=== PATIENT | male | born 1960 | race Caucasian/White ===

== ENCOUNTER 2020-05-07 15:12 | Outpatient (CLI) | payer OTHER, SELFPAY ==
--- NOTE | 2020-05-07 15:36 | CT_ITS ---
WS: [id number] CT scan of the abdomen and pelvis without Oral and IV contrast. Additional two-dimensional coronal an d sagittal reconstruction was performed. 05/07/2020 Clinical Data: GROSS HEMATURIA Comparison: None. DLP: 1155.[address] scans at [facility] use at least one of these dose optimization techniques: automat ed exposure control; mA and/or kV adjustment per patient size (includes targeted exams where dose is matched to clinical indication); or iterative reconstruction. Findings: The lower lungs show no nodules, masses or effusions. There is minimal central atelectasis in the rig ht middle and right lower lobes. The liver, gallbladder, spleen, adrenal glands and pancreas are norm al. There is a nonobstructing left renal pelvic 1.0 cm calculus. No hydronephrosis, cysts or masses are s een in either kidney. The right kidney shows no calculi. The ureters are not dilated and there are no ureteral calculi. No calculi are in the bladder. The abdominal aorta is normal in size with calcification in the wall. No appendicitis or diverticulitis is seen. Stomach, small bowel and colon are not remarkable. The beverly dder is unremarkable. No inguinal hernia is seen. The prostate is enlarged. There is mild osteoarthritic spurring of the lumbar vertebral bodies.. CT/CT kidney stone [id number] Impression: 1. Nonobstructing 1.0 cm left renal pelvic calculus. 2. No acute intra-abdominal or pelvic abnormalities are seen.
== END 2020-05-07 15:13 | disposition home or self-care (01) ==
LOC: RADWPI 15:19
PROVIDERS: PCP Nurse Practitioner Family; Visit Provider Nurse Practitioner Family
DX: R31.0 Gross hematuria (principal); N20.0 Calculus of kidney
CPT/HCPCS: 74176

== ENCOUNTER 2020-05-18 10:46 | Outpatient (CLI) | payer OTHER, SELFPAY ==
--- NOTE | 2020-05-18 10:45 | XR_ITS ---
WS: [id number] Exam: XR KUB [id number] Date/Time of Exam: 05/18/2020 10:45 AM Reason For Exam: RENAL STONE There is a 1 cm calcification superimposing the left kidney that apparently represents the patient's known left renal stone. No other calcifications are noted in the abdomen or pelvis. Visualized organ margins are intact. No bowel obstruction or pneumoperitoneum. Regional bony elements are intact. XR/XR KUB [id number] IMPRESSION: 1. 1 cm left abdominal calcification most likely representing the patient's kno wn renal stone. 2. No acute abdominal process.
== END 2020-05-18 10:47 | disposition home or self-care (01) ==
LOC: RAD 10:49
PROVIDERS: PCP Nurse Practitioner Family; Visit Provider Urology
DX: N20.0 Calculus of kidney (principal)
CPT/HCPCS: 74018; 81003

== ENCOUNTER → 2020-05-23 16:31 | Outpatient (BNVA) | payer OTHER, SELFPAY | PROVIDERS: PCP Nurse Practitioner Family; Visit Provider Urology | DX: Z11.59 Encounter for screening for other viral diseases (principal); N20.0 Calculus of kidney | CPT/HCPCS: 87635 ==

== ENCOUNTER 2020-05-28 11:09 | Day surgery (SDC) | payer OTHER, SELFPAY ==
--- NOTE | 2020-05-28 11:22 | XRR_ITS ---
PROCEDURE INFORMATION: Exam: XR Abdomen, 1 View Exam date and time: 05/28/2020 11:23 AM Age: 59 years old Clinical indication: Screening exam; Other: Preop left eswl TECHNIQUE: Imaging protocol: XR of the abdomen. Views: Frontal supine view of the abdomen. 1 View. COMPARISON: CR XR KUB [id number] 05/18/2020 11:02 AM FINDINGS: Gastrointestinal tract: Normal. No bowel dilation. Organs: A 1 cm calculus projects on the left renal pelvis. This has been seen on previous CT and plain radiographs. Its position is unchanged. No other calcifications are seen in the projections of the kidneys or ureters. Bones/joints: Unremarkable. XR/XR KUB [id number] IMPRESSION: Stable appearance of the 1 cm calculus projecting on the left renal pelvis.
[2020-05-28 11:46] VITALS: BP 117/76; PULSE 56; RESP 18; TEMP 37; O2SAT 98
[2020-05-28] MEDS: sodium chloride 0.9% 1,000 ML 30 ML IV (11:55)
--- NOTE | 2020-05-28 12:04 | PC.NURSE ---
1200-Notified anesthesia, Dr Bolden of pts irreg heartbeat. Had a few PVC, and a few PAC on heart monitor. Dr Bolden said it was ok, and no further orders given.
--- NOTE | 2020-05-28 12:12 | ANES.PREANE2 ---
Pre-Anesthetic Assessment Pre-Anesthetic Assessment: Height/Weight: Height 1.68 m Weight 63.503 kg Temp Pulse Resp BP Pulse Ox 98.6 F 56 L 18 117/76 98 05/28/20 11:46 05/28/20 11:46 05/28/20 11:46 05/28/20 11:46 05/28/20 11:46 Preop Diagnosis: Symptomatic left renal pelvic stone Proposed Procedure: Operation Date: 05/28/20 12:40 Proposed Procedures p Cystoscopy 42660 80826 N20.0 R31.0(Not Applicable) - Jorge Siddiqui MD s Ureteral Stent Placement(Left) - Jorge Siddiqui MD s ESWL(Not Applicable) - Jorge Siddiqui MD Was Beta Kathy taken within 24 hours: N/A Last intake: Intake Last Liquid Date 05/27/20 Last Liquid Time 17:00 Last Solid Date 05/27/20 Last Solid Time 11:00 Social: Social History: Tobacco Exam: Pre-Anes Outpt Exam: alert, oriented x 3, clear to auscultation bilaterally (BBS decreased, rhonchi) and regular rate & rhythm Airway: Submandibular: WNL Cervical ROM: WNL MP: 2 Additional comments: upper denture Pulmonary: Pulmonary: COPD CV/HEM: CV/HEM: HTN : : None reported Hepatic: Hepatic: None reported GI: Comments: Kidney stones Metabolic: Metabolic: None reported Musc/skel: Musc/skel: None reported Neuropsych: Neuropsych: None reported Anesthetic Plan: ASA status: 3 Anesthesia: General Risk of > 500 ml blood loss (7ml/kg in children): No Meds/Allergies Current Medications: Current Medications Generic Name Dose Route Start Last Admin Trade Name Freq PRN Reason Stop Dose Admin Sodium Chloride 1,000 mls @ 30 ml s/hr 05/28/20 08:30 05/28/20 11:55 Sodium Chloride 0.9% IV 05/29/20 08:29 30 mls/hr .Q24H PHAN Administration PFSH Anesthesia PFSH: Medical History (Updated 05/18/20 @ 12:10 by Jorge Siddiqui MD) Benign prostatic hyperplasia with lower urinary tract symptoms Erectile dysfunction Gross hematuria HTN (hypertension) Hyperlipemia Renal calculus Social History (Updated 05/18/20 @ 11:36 by Zulema Roshan, CT) Smoking and tobacco status: current every day smoker Alcohol intake: current Alcohol intake frequency: holidays/special occasions only Marital status: Current occupational status: employed Data Anesthesia Cardiac Studies: No Data to Display
--- NOTE | 2020-05-28 12:57 | W.PM.OPSUD ---
Surgery/Procedure H&P Update DATE OF PROCEDURE: May 28, 2020 DATE H&P PERFORMED: 05/18/20 H&P UPDATE INFORMATION: I have reviewed H&P completed within last 30 days, I have examined patient prior to procedure, No changes to prior documentation and H&P is in [facility] EMR on date indicated PREOP DIAGNOSIS: Symptomatic left renal pelvic stone PLANNED PROCEDURE: Operation Date: 05/28/20 12:40 Proposed Procedures p Cystoscopy 71039 45133 N20.0 R31.0(Not Applicable) - Jorge Siddiqui MD s Ureteral Stent Placement(Left) - Jorge Siddiqui MD s ESWL(Not Applicable) - Jorge Siddiqui MD
--- NOTE | 2020-05-28 12:58 | P.OP_ITS ---
Operative Report Date of procedure: May 28, 2020 Pre-op Diagnosis: Symptomatic left renal pelvic/UPJ stone Post-op diagnosis: same Procedure Done: 1. Cystoscopy with LEFT ureteral stent placement 2. Extracorporeal shockwave lithotripsy to left UPJ stone Implants: 7 x 26 cm double-pigtail stent Pathology: none sent Surgeon: [employer] Worker: David Trent: Lithotripsy trace evidence technician Anesthesia: General Estimated blood loss: None Urine output: Not measured Complications: None Findings: 1. Stone easily localized with biplanar fluoroscopy. 2. 2500 shocks administered to the stone with excellent change. Condition: stable Disposition: PACU Brief History: Gerard is a very pleasant 59-year-old white male first evaluated on 05/18/2020 at the request of Caprice Rodriges for history of stones, gross hematuria, and intermittent left flank pain. Work-up included a CT scan that demonstrated a 1 cm left UPJ stone. Options included continued observation versus treatment (endoscopic versus ESWL). After detailed discussion the patient elected to proceed with stent and ESWL. Procedure: After routine preoperative evaluation examination and obtaining of informed consent he was taken to the operating suite on 05/28/2020 where general anesthesia was administered without difficulty after appropriate timeout was performed, SCDs confirmed to be functioning, preoperative antibiotics administered, beta-elza protocol confirmed. Prepped and draped in usual sterile fashion in dorsolithotomy position paying careful attention to avoiding pressure points. 21 [place] cystoscope with 30 degree lens was introduced into the urethral meatus but the fossa navicularis was tight and therefore dilated with Bixby sounds from 18-24. It was then advanced into the bladder under videoscopy. Bladder was systematically examined and showed no obvious mucosal abnormalities but did demonstrate trabeculation and some cellule formation. (On TAMSULOSIN) Flexible tip guidewire was then advanced up the left ureter bypassing the stone and curling in the upper pole calyx. A 7 [place] by 26 cm double-pigtail stent was advanced over the guidewire through the cystoscope into appropriate position as confirmed via fluoroscopy and cystoscopy. The bladder was drained and the cystoscopic portion of the procedure was completed. He was then placed in supine position on the Dornier unit such that the stone was located at the focal point utilizing biplanar fluoroscopy. Shock head was positioned posteriorly. Shockwave was initiated and intensity of 1 and advanced to an intensity of 4 after about a 3-minute pause following roughly 300 shocks. Rate was initiated at 70 and after notable change was identified increased to 90. A total of 2500 shocks were administered to the stone and stone fragments with excellent change. He tolerated the procedure well without complications and was awakened in the operating room and returned to the recovery room in stable condition. PLANS: 1. Expect discharge from outpatient surgery this afternoon. 2. Follow-up in roughly 1 week with KUB possible cystoscopy stent removal.
[2020-05-28] MEDS: levofloxacin-dextrose 5 % 500 MG/100 ML PREMIX 100 MG IV (13:06)
--- NOTE | 2020-05-28 13:15 | W.PM.OPSUD ---
Surgery/Procedure H&P Update DATE OF PROCEDURE: May 28, 2020 DATE H&P PERFORMED: 05/18/20 H&P UPDATE INFORMATION: I have reviewed H&P completed within last 30 days, I have examined patient prior to procedure, No changes to prior documentation and H&P is in [facility] EMR on date indicated PREOP DIAGNOSIS: Symptomatic left renal pelvic/UPJ stone PLANNED PROCEDURE: Operation Date: 05/28/20 12:40 Proposed Procedures p Cystoscopy 80715 24060 N20.0 R31.0(Not Applicable) - Jorge Siddiqui MD s Ureteral Stent Placement(Left) - Jorge Siddiqui MD s ESWL(Not Applicable) - Jorge Siddiqui MD
[2020-05-28 14:15] VITALS: BP 134/84; PULSE 77; RESP 12; TEMP 36.1; O2SAT 100
[2020-05-28 14:20] VITALS: BP 122/68; PULSE 66; RESP 16; O2SAT 98
[2020-05-28 14:25] VITALS: BP 125/71; PULSE 57; RESP 16; TEMP 36.1; O2SAT 95
[2020-05-28 14:30] VITALS: BP 107/65; PULSE 61; RESP 14; TEMP 36.6; O2SAT 100
[2020-05-28 15:00] VITALS: BP 129/77; PULSE 58; RESP 16; O2SAT 100
--- NOTE | 2020-05-28 15:28 | PC.NURSE ---
PATIENT STARTED TO GET DRESSED TO GO HOME WITH ASSIST FROM A FRIEND. FRIEND APPROACHED NURSE REPORTING PATIENT WAS BLEEDING. MODERATE AMOUNT OF BLOOD NOTED DOWN BILATERAL INNER THIGHS. MEDIUM SIZE BLOOD CLOT NOTED. DENIES PAIN BP 128/72 HR 74. ASSISTED PATIENT TO BATHROOM TO TRY AND URINATE. PATIENT REPORTS 2 DROPS OF BLOOD CAME FROM PENIS, BUT WAS UNABLE TO URINATE. DR. HANCOCK NOTIFIED. TO ASSESS PATIENT WHEN OUT OF CURRENT SURGERY
--- NOTE | 2020-05-28 16:20 | PC.NURSE ---
BLADDER SCAN COMPLETE. AN AVERAGE OF 150ML NOTED. RELAYED TO
--- NOTE | 2020-05-28 17:08 | PM.PACU ---
PACU note PACU note: VSS Post-Anesthesia Exam: awake Disposition: discharged
--- NOTE | 2020-05-28 18:10 | SUR.PHASEII ---
approx 530ml urine in bladder per bladder scanner
--- NOTE | 2020-05-28 18:22 | SUR.PHASEII ---
patient has been to bathroom several times and still cannot void. Left voicemail with Dr. Siddiqui.
== END 2020-05-28 19:03 | disposition home or self-care (01) ==
PROVIDERS: PCP Nurse Practitioner Family; Visit Provider Urology
PROC: 0TJB8ZZ Inspection of Bladder, Via Natural or Artificial Opening Endoscopic (ICD-10-PCS; CPT 52000; principal; 2020-05-28 12:40)
PROC: (CPT 50605; 2020-05-28 12:40)
PROC: (CPT 50590; 2020-05-28 12:40)
DX: N20.0 Calculus of kidney (principal); I10 Essential (primary) hypertension; J44.9 Chronic obstructive pulmonary disease, unspecified; N40.0 Benign prostatic hyperplasia without lower urinary tract symptoms; E78.5 Hyperlipidemia, unspecified; F17.210 Nicotine dependence, cigarettes, uncomplicated
CPT/HCPCS: 50590; 52332; 12345; 51702; 74018; C2625; J1100; J1956; J2405; J2704; J2710; J3010; J3490; J7030

== ENCOUNTER 2020-06-07 09:29 | Outpatient (CLI) | payer OTHER, SELFPAY ==
--- NOTE | 2020-06-07 09:30 | XRR_ITS ---
PROCEDURE INFORMATION: Exam: XR Abdomen, 1 View Exam date and time: 06/07/2020 9:42 AM Age: 59 years old Clinical indication: Condition or disease; Kidney or ureter condition; Calculus (stone) in kidney; Patient HX: Follow up left side stone; Additional info: Renal stone TECHNIQUE: Imaging protocol: XR of the abdomen. Views: Frontal supine view of the abdomen. 1 View. COMPARISON: CR XR KUB [id number] 05/28/2020 11:34 AM FINDINGS: Gastrointestinal tract: The bowel gas pattern is nonspecific. No bowel dilation. Bones/joints: Unremarkable. There is a double-J ureteral stent in place on the left side in good position. A small caliceal stones are seen in the lower pole collecting system of the left kidney measuring 5 mm and 9 mm respectively. On prior examination a large a caliceal stone was present measuring 10 mm XR/XR KUB [id number] IMPRESSION: 1. Small renal stones the lower pole collecting system left kidney new since prior 2. Double-J ureteral stent is in place on the left side in good position. 3. Negative for acute GI abnormality
== END 2020-06-07 09:30 | disposition home or self-care (01) ==
PROVIDERS: PCP Nurse Practitioner Family; Visit Provider Urology
DX: N20.0 Calculus of kidney (principal); Z96.0 Presence of urogenital implants
CPT/HCPCS: 74018; 81003

== ENCOUNTER 2020-09-03 08:57 | Outpatient (CLI) | payer OTHER, SELFPAY ==
--- NOTE | 2020-09-03 09:30 | XRR_ITS ---
PROCEDURE INFORMATION: Exam: XR Abdomen Exam date and time: 09/03/2020 9:08 AM Age: 59 years old Clinical indication: Condition or disease; Kidney or ureter condition; Calculus (stone) in kidney; Additional info: Renal stone TECHNIQUE: Imaging protocol: XR of the abdomen. Views: Frontal supine view of the abdomen. 1 View. COMPARISON: CR XR KUB [id number] 06/07/2020 9:46 AM FINDINGS: Gastrointestinal tract: Normal. No bowel dilation. Organs: No calcifications are seen in the projection of the kidneys, ureters or urinary bladder. Bones/joints: Unremarkable. XR/XR KUB [id number] IMPRESSION: No significant abnormality.
== END 2020-09-03 08:58 | disposition home or self-care (01) ==
LOC: RAD 09:03
PROVIDERS: PCP Nurse Practitioner Family; Visit Provider Urology
DX: N20.0 Calculus of kidney (principal)
CPT/HCPCS: 74018; 81003

== ENCOUNTER 2022-04-14 15:39 | Emergency (ER) | payer SELFPAY ==
[2022-04-14 15:47] VITALS: BP 114/72; PULSE 69; RESP 18; TEMP 36.4; O2SAT 100; BMI 23.3
--- NOTE | 2022-04-14 15:53 | XRR_ITS ---
PROCEDURE INFORMATION: Exam: XR Left Hand Exam date and time: 04/14/2022 4:04 PM Age: 61 years old Clinical indication: Injury or trauma; Other: Laceration; Hand; Left; Additional info: Left hand laceration injury TECHNIQUE: Imaging protocol: Radiologic exam of the Left hand. Views: 3 or more views. COMPARISON: No relevant prior studies available. FINDINGS: Bones/joints: No acute fracture dislocation. Soft tissues: A discrete high-density focus measuring 4 mm is noted projecting over the thenar region on the 2nd image but not on other images. If there is strong clinical concern for soft tissue foreign body, follow-up assessment may be helpful. Soft tissue air is noted near the proximal thumb and thenar region. Other findings: Three views submitted. Lateral views somewhat limited due to overlapping structures. XR/XR hand LT min 3V* [id number] IMPRESSION: Soft tissue findings as above. No acute fracture.
--- NOTE | 2022-04-14 16:06 | W.ED.WOUNDLC ---
HPI - Wound/Laceration General: Chief Complaint: Wound/Laceration Stated Complaint: Left hand lac Time Seen by Provider: 04/14/22 15:53 History of Present Illness: Patient is a 61-year-old male comes to the ED with left hand laceration. Injury occurred just prior to arrival. Patient says he was splitting some wood and cut the webspace between his thumb and index finger. He has full range of motion in thumb. He is not up-to-date on his tetanus. Associated symptoms: Denies chills, fever(s), nausea or vomiting Review of Systems Const: Denies: fever(s), chills or fatigue Eyes: Denies: change in vision or eye discomfort ENMT: Denies: throat pain, odynophagia, nasal discharge or nasal congestion Card: Denies: chest pain, palpitations, edema, swelling of feet/ankles, dyspnea on exertion or orthopnea Resp: Denies: dyspnea, productive cough or non-productive cough GI: Denies: abdominal pain, nausea, vomiting, diarrhea, constipation or hematochezia : Denies: flank pain, difficulty urinating, dysuria or hematuria Musc: Denies: neck pain, back pain or extremity swelling Skin/Breast: Reports: new lesions (left hand laceration); Denies: rash Neuro: Denies: headache(s), numbness in extremities or weakness in extremities PFSH ED PFSH: Medical History (Updated 04/14/22 @ 17:24 by KRISTIN Hernandez) Benign prostatic hyperplasia with lower urinary tract symptoms Erectile dysfunction Gross hematuria HTN (hypertension) Hyperlipemia Renal calculus Urolithiasis Surgical History (Updated 09/01/21 @ 14:26 by Jorge Siddiqui MD) Status post extracorporeal shock wave therapy Social History Smoking and tobacco status: current every day smoker Alcohol intake: current Alcohol intake frequency: holidays/special occasions only Marital status: Current occupational status: employed Physical Exam Const: COMMON NORMALS: patient oriented x3 and alert GENERAL APPEARANCE: cooperative HENMT: COMMON NORMALS: normocephalic HEAD & SCALP: normocephalic MOUTH: Normal oral and palatal mucosa present THROAT: posterior oropharynx normal and uvula midline Neck/C-Spine: COMMON NORMALS: supple GENERAL: Yes normal visual inspection Resp: COMMON NORMALS: normal respiratory effort, No retractions, No use of accessory muscles and clear to auscultation bilaterally AUSCULTATION: clear to auscultation bilaterally Cardio: COMMON NORMALS: regular rate, regular rhythm, S1 normal heart sound present, S2 normal heart sound present, No gallops present (Cardio), No clicks present (Cardio), No murmurs present (Cardio) and Peripheral pulses 2+ throughout RATE: regular rate RHYTHM: regular rhythm HEART SOUNDS: S1 normal heart sound present and S2 normal heart sound present PERIPHERAL PULSES: Peripheral pulses 2+ throughout GI: COMMON NORMALS: Normal to inspection, nondistended, normoactive bowel sounds present, Soft to palpation, non-tender and no masses PALPATION: Yes Soft to palpation : COMMON NORMALS: Yes no CVA tenderness BLADDER/KIDNEY EXAM: Yes no CVA tenderness Back/Pelvis: COMMON NORMALS: no CVA tenderness Extremity: NARRATIVE EXTREMITY EXAM: Left hand?webspace?two 3 cm linear lacerations noted. Patient has full range of motion in thumb and no concerns for any tendon injury. Lack of sensation to distal pad of thumb. Neuro: COMMON NORMALS: patient oriented x3 SENSORIUM/ORIENTATION: Yes alert GAIT: Yes Normal gait present Skin: GENERAL SKIN EXAM: dry skin Procedures Laceration Laceration 1: Site: hand (webspace between thumb and index finger) Size (cm): 3 (Patient has 2 linear lacerations that are 3 cm in length) Description: linear Depth: simple, single layer Local Anesthetic: lidocaine 1% Amount of anesthesia used (mL): 6 Pre-repair: irrigated extensively (With normal saline and beta iodine.) Skin layer closed with: nylon Size (cm): 4-0 Number of sutures: 10 Technique: simple, interrupted Course Vital Signs: Vital signs: Vital Signs Temperature 97.6 F 04/14/22 15:47 Pulse Rate 69 04/14/22 15:47 Respiratory Rate 18 04/14/22 15:47 Blood Pressure 114/72 04/14/22 15:47 Pulse Oximetry 100 04/14/22 15:47 Oxygen Delivery Me thod 04/14/22 15:47 MDM - Wound/Laceration Medical Decision Making Patient is a 59-year-old male comes to the ED with laceration to left hand. Injury from wood splitter. He was given an updated tetanus here in the ED. Upon exam patient has two 3 cm linear lacerations. He has full range of motion in thumb and fingers and no suspicion for any tendon injury. Patient does have lack of sensation distal pad of thumb. His laceration site was irrigated extensively with normal saline and beta iodine. Lidocaine 1% was used as local and in total 10 sutures were placed to close lacerations. X-ray of left hand showed no acute fractures or findings. An order was placed with case management for patient referred to Ortho for follow-up due to possible nerve injury to the thumb. He was bandaged up and instructed on how to care for laceration site. He was discharged home with a prescription for Keflex. Have sutures removed in 7 to 10 days. Patient understood and agreed with plan. Lab Data Radiology Impressions Hand X-Ray 04/14/22 15:53 IMPRESSION: Soft tissue findings as above. No acute fracture. Discharge Plan Discharge Patient Disposition: Home Clinical Impression: Hand laceration Qualifiers: Encounter type: initial encounter Foreign body presence: without foreign body Laterality: left Qualified Code(s): S61.412A - Laceration without foreign body of left hand, initial encounter Condition: Stable Prescriptions: New cephalexin 500 mg capsule 500 mg PO Q6H 7 Days Qty: 28 0RF No Action amlodipine 5 mg tablet 5 mg PO DAILY tamsulosin 0.4 mg capsule 0.4 mg PO DAILY sulfamethoxazole-trimethoprim 800-160 mg tablet 1 tab PO DAILY Qty: 30 1RF atorvastatin 10 mg tablet 10 mg PO DAILY [place] 5-325 mg tablet 1 tab PO Q8H PRN (Reason: pain) Qty: 12 0RF Discharge Orders: Discharge ED (Routine); Ordered 04/14/22 Ordered By: Ari Leonard Referrals: Caprice Rodriges, JOHANNY [Primary Care Provider] - Discharge Diet: Regular Discharge Activity: Increase activity as tolerated Patient Instructions: Laceration (DC) Activity Restrictions/Additional Instructions: Case management should be contacting you in the next several days set up appoint with Ortho for follow-up. Take full course of antibiotics as prescribed. Keep laceration site clean and dry. Clean daily with soap and water and then apply thin layer of triple antibiotic ointment on it and cover with bandage. Watch for signs of infection such as redness, warmth, increased tenderness and puslike drainage. If you see the signs of infection return to the ED, urgent care or PCP for reevaluation. call your PCP to schedule a follow-up appointment for reevaluation and suture removal in about 7- 10 days. Continue taking all home meds. Follow discharge plans as discussed. You can return to the ED if symptoms worsen. Coding Level of Care Code ED Agile Test Lead for Lilly Vallecillo Exam Comprehensive
[2022-04-14] MEDS: tetanus-dipt-pertussis 0.5 mL SDV IM (17:33)
[2022-04-14] MEDS: cephALEXin 500 mg Capsule PO (17:34)
--- NOTE | 2022-04-15 12:31 | DCPLANNER ---
Addendum entered by Jolly Long 06/18/22 15:25: Patient had a follow up appointment for patient with ortho - patient did attend appointment Addendum entered by Jolly Long 04/16/22 11:18: Patient has a follow up appointment scheduled for Monday, April 18, 2022 at 8:[address] Leonard at ortho. Clinic will call patient with appointment information. Original Note: manager domestic had message to schedule a follow up appointment for patient with ortho. manager domestic sent patients information to the front office staff at ortho. Patients information will be printed and reviewed. Clinic will call patient with appointment information.
== END 2022-04-14 17:38 | disposition home or self-care (01) ==
PROVIDERS: Emergency Provider Physician Assistant; PCP Nurse Practitioner Family
DX: S61.412A Laceration without foreign body of left hand, initial encounter (principal); I10 Essential (primary) hypertension; E78.5 Hyperlipidemia, unspecified; F17.210 Nicotine dependence, cigarettes, uncomplicated; W45.8XXA Other foreign body or object entering through skin, initial encounter; Z23 Encounter for immunization
CPT/HCPCS: 12002; 73130; 90471; 90715; 99283